=== PATIENT | male | born 1975 | race Caucasian/White ===

== ENCOUNTER 2021-02-04 21:41 | Emergency (ER) | payer OTHER, MEDICAID ==
[2021-02-04] MEDS ORDERED: Ketorolac 30 MG/ML SDV IVPUSH ONE (22:10)
[2021-02-04] MEDS ORDERED: diphenhydrAMINE 50 MG/ML SDV IVPUSH ONE (22:11)
[2021-02-04] MEDS ORDERED: Cyclobenzaprine 10 MG Tab PO ONE (22:11)
[2021-02-04] MEDS ORDERED: Metoclopramide 10 MG/2 ML SDV IVPUSH ONE (22:12)
[2021-02-04] MEDS ORDERED: Sodium Chloride 0.9% 1,000 ML IV SCH (22:15)
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
[2021-02-04] MEDS ORDERED: Ondansetron 4 MG/2 ML SDV IVPUSH ONE (22:44)
[2021-02-04] MEDS ORDERED: buPROPion 150 MG Tab.SR PO ONE (22:45)
[2021-02-04] MEDS ORDERED: traMADol 50 MG Tab PO ONE (23:59)
== END 2021-02-05 00:18 | disposition other institution (70) ==
LOC: JP.ED 21:41
DX: R51.9 Headache, unspecified (principal); Z86.16 Personal history of COVID-19; Z91.048 Other nonmedicinal substance allergy status; Z79.899 Other long term (current) drug therapy
CPT/HCPCS: 96374; 96375; 99283; A9270; J1200; J1885; J2405; J2765; J7030